=== PATIENT | female | born 1965 | race Caucasian/White ===

== ENCOUNTER 2020-08-13 17:27 | Inpatient (IN) | payer OTHER ==
[~2020-08-13] VITALS: Ht 172.7 cm; Wt 95.3 kg
[2020-08-13 18:38] LABS: BASOPHILS 0.1 % (0-2); EOSINOPHILS 0.1 % (0-7); HEMATOCRIT 48.4 % (36.0-48.0); HEMOGLOBIN 15.8 g/dL (12-16); LYMPHOCYTES 4.1 % (15-50); MCHC 32.6 g/dL (31.0-37.0); MCV 88.7 fL (80.0-100.0); MEAN PLATELET VOLUME 7.2 fL (7.4-10.4); MONOCYTES 3.3 % (2-11); NEUTROPHILS 92.4 % (40-80); PLATELET COUNT 419 10x3/uL (130-400); RBC 5.45 10x6/uL (4.00-5.40); RDW 13.3 % (11.5-14.5); WBC 15.1 10x3/uL (4.8-10.8)
[2020-08-13 19:00] LABS: APTT 24.7 SECONDS (22.8-39.4); INR 1.02 (0.85-1.17); PROTIME 12.4 SECONDS (11.6-15.0)
[2020-08-13] MEDS ORDERED: ZOLOFT25 MG PO (19:27)
[2020-08-13] MEDS ORDERED: OMEPRAZOLE40 MG PO (19:27)
[2020-08-13] MEDS ORDERED: BUPROPION HCL75 MG PO (19:27)
[2020-08-13] MEDS ORDERED: COZAAR25 MG PO (19:28)
[2020-08-13] MEDS ORDERED: ESTRACE 0.5 MG0.5 MG PO (19:28)
[2020-08-13 19:30] VITALS: BP 164/90
--- NOTE | 2020-08-13 19:31 | NUR ---
PT RESTING COMFORTABLY IN BED TALKING TO FAMILY MEMBER AT BEDSIDE. DENIES NEEDS. CALL LIGHT IN REACH.
[2020-08-13 20:09] LABS: ANION GAP 18.2 mmol/L (8-16); CALCIUM 8.8 mg/dL (8.5-10.1); CARBON DIOXIDE 26.3 mmol/L (21.0-32.0); CREATININE - SERUM 1.1 mg/dL (0.6-1.3); POTASSIUM - SERUM 4.5 mmol/L (3.5-5.1)
[2020-08-13 20:15] LABS: ALBUMIN 3.4 g/dL (3.4-5.0); PROTEIN - SERUM 7.4 g/dL (6.4-8.2)
[2020-08-13 20:30] VITALS: BP 167/91
--- NOTE | 2020-08-13 20:30 | NUR ---
PT IV MEFOXIN FINISHED
[2020-08-13 21:30] VITALS: BP 153/94
--- NOTE | 2020-08-13 21:43 | NUR ---
PT GIVEN ICE WATER TO DRINK. DENIES FURTHER NEEDS. CALL LIGHT IN REACH.
[2020-08-13 22:30] VITALS: BP 147/98
--- NOTE | 2020-08-13 23:15 | NUR ---
PT BROUGHT TO FLOOR AOX4. AMBULATED TO BED FROM WHEELCHAIR WITHOUT DIFFICULTY. PT ORIENTED TO ROOM AND UNIT. STATES NO PAIN OR NAUSEA AT THIS TIME. STATES ONLY PAIN TO RIGHT SIDE EPIGASTRIC AREA WHEN SHE MOVES. IV RIGHT AC INFUSING NS @ 75. REMINDED PT SHE IS NPO AFTER MN. VERBALIZED UNDERSTANDING. CL IN REACH
[2020-08-13 23:34] VITALS: BP 133/93; BMI 32.0
--- NOTE | 2020-08-14 03:30 | NUR ---
IV RIGHT AC ALARMING OCCLUDED AND LEAKING. REMOVED WITH CATH INTACT. RESITED IV TO LEFT WRIST
[2020-08-14 04:26] VITALS: BP 153/86
[2020-08-14 06:32] LABS: BASOPHILS 0.5 % (0-2); EOSINOPHILS 0 % (0-7); HEMOGLOBIN 14.6 g/dL (12-16); LYMPHOCYTES 7.6 % (15-50); MCH 28.9 pg (26.0-34.0); MCHC 33.1 g/dL (31.0-37.0); MCV 87.2 fL (80.0-100.0); MEAN PLATELET VOLUME 7.3 fL (7.4-10.4); MONOCYTES 5.8 % (2-11); NEUTROPHILS 86.1 % (40-80); PLATELET COUNT 420 10x3/uL (130-400); RBC 5.04 10x6/uL (4.00-5.40); RDW 13.2 % (11.5-14.5)
[2020-08-14 07:04] LABS: BILIRUBIN - TOTAL 0.87 mg/dL (0.2-1.3); CALCIUM 7.9 mg/dL (8.5-10.1); CARBON DIOXIDE 24.9 mmol/L (21.0-32.0); CREATININE - SERUM 0.9 mg/dL (0.6-1.3); PHOSPHOROUS 2.9 mg/dL (2.5-4.9); PROTEIN - SERUM 6.6 g/dL (6.4-8.2); THYROID STIMULATING HORMONE 0.96 uIU/mL (0.36-3.74)
--- NOTE | 2020-08-14 07:33 | NUR ---
CALLED MRI ABOUT DOING MRCP FIRST THING THIS MORNING PER DR CASPER REQUEST. NO ANSWER. RADIOLOGY STATES CALL BACK AGAIN AROUND OR A LITTLE BEFORE 0800.
[2020-08-14 07:36] LABS: ANION GAP 11.6 mmol/L (8-16); POTASSIUM - SERUM 3.5 mmol/L (3.5-5.1)
--- NOTE | 2020-08-14 08:04 | NUR ---
ALERT AND ORIENTED. ASSESSMENT COMPLETE. DENIES NEEDS. BED LOW. CALL SONG AND PERSONAL ITEMS IN REACH. SPOKE WITH MRI TO GET PATIENT IN FIRST THING THIS MORNING PER VOSHABBIR REQUEST. STATES JUST GETTING HERE BUT WILL GET HER FIRST. PATIENT MADE AWARE AND DENIES FURTHER QUESTIONS.
[2020-08-14 13:10] VITALS: BP 131/84
--- NOTE | 2020-08-14 14:08 | NUR ---
SPOKE WITH TREVON ABOUT POSSIBLE LAP EVARISTO WITH DR WARE PER DR CASPER ON UNIT. STATES DR WARE IS OUT BUT WILL LET DR CAMPO KNOW AND CALL BACK. STATES SURGERY WILL BE TOMORROW IF SURGERY HAPPENING AND OK FOR PATIENT TO EAT IF OK WITH MEDICAL. SPOKE WITH MARYSOL AWLLER AT DESK WITH DR CASPER ABOUT PATIENT. STATES OK FOR PATIENT TO HAVE CLEAR LIQUIDS AND NPO AFTER MN.
[2020-08-14 15:03] VITALS: BMI 31.9
[2020-08-14 15:45] VITALS: Ht 172.7 cm; Wt 95.3 kg
[2020-08-14 16:57] VITALS: BP 138/84
[2020-08-14 20:00] VITALS: BP 129/79
--- NOTE | 2020-08-14 20:00 | NUR ---
PT SITTING UP IN BED WITHOUT DISTRESS, AOX4. TALKING ON PHONE WITH FAMILY. DENIES PAIN, NAUSEA OR NEEDS AT THIS TIME. CL IN REACH
[2020-08-15 04:00] VITALS: BP 150/82
[2020-08-15 07:05] LABS: HEMATOCRIT 39.8 % (36.0-48.0); HEMOGLOBIN 13.2 g/dL (12-16); MCH 29.5 pg (26.0-34.0); MCHC 33.2 g/dL (31.0-37.0); MCV 88.9 fL (80.0-100.0); MEAN PLATELET VOLUME 7.8 fL (7.4-10.4); PLATELET COUNT 323 10x3/uL (130-400); RBC 4.48 10x6/uL (4.00-5.40); RDW 13.4 % (11.5-14.5); WBC 20.4 10x3/uL (4.8-10.8)
[2020-08-15 07:40] LABS: ALBUMIN 2.6 g/dL (3.4-5.0); ANION GAP 11.2 mmol/L (8-16); BILIRUBIN - TOTAL 0.79 mg/dL (0.2-1.3); CALCIUM 7.1 mg/dL (8.5-10.1); CARBON DIOXIDE 26.2 mmol/L (21.0-32.0); MAGNESIUM - SERUM 2.1 mg/dL (1.8-2.4); POTASSIUM - SERUM 3.4 mmol/L (3.5-5.1); PROTEIN - SERUM 6.3 g/dL (6.4-8.2)
[2020-08-15 07:56] LABS: PHOSPHOROUS 1.7 mg/dL (2.5-4.9)
[2020-08-15 08:47] LABS: LYMPHOCYTES 16 % (15-50); MONOCYTES 2 % (2-11); NEUTROPHILS 82 % (40-80); PLATELET ESTIMATE NORMAL
--- NOTE | 2020-08-15 09:37 | NUR ---
SHARAD CALLED FOR PREOP, DONE AT THIS TIME. RESTING COMFORTABLY. DENIES NEEDS. BED IN LOWEST POSITION, BED RAILS X2, CALL LIGHT WITHIN REACH. WILL CONTINUE POC. ASSESSMENT PERFORMED AT THIS TIME.
[2020-08-15 09:51] VITALS: BP 133/76
--- NOTE | 2020-08-15 10:07 | NUR ---
PATIENT OUT OF ROOM TO SURGERY
[2020-08-15 14:54] VITALS: BP 137/77
--- NOTE | 2020-08-15 15:12 | NUR ---
BACK TO ROOM, VITAL SIGNS STABLE. O2 SITTING AT 94-95% ON 4L O2 AT THIS TIME.
--- NOTE | 2020-08-15 16:58 | NUR ---
RESTING COMFORTABLY IN BED. MORE AWAKE NOW. VISITOR AT BEDSIDE. DENIES ANY NEEDS. WILL CONTINUE POC.
[2020-08-15 17:03] VITALS: BP 114/64
--- NOTE | 2020-08-15 18:20 | NUR ---
HUNG IV ABX, TOLERATING WELL. RESTING COMFORTABLY. DENIES ANY NEEDS AT THIS TIME. EATING ICE CHIPS. WILL CONTINUE POC.
--- NOTE | 2020-08-15 20:16 | NUR ---
PATINET K+ IS 3.4 REPLETE PER PROTOCOL, IV K+ X4 BAGS
[2020-08-15 20:45] VITALS: BP 127/74
--- NOTE | 2020-08-16 03:36 | NUR ---
I have reviewed this patient and I concur with the Shift Assessment completed by the Licensed Practical Nurse today this shift.
--- NOTE | 2020-08-16 03:56 | NUR ---
I have reviewed this patient and I concur with the Shift Assessment completed by the Licensed Practical Nurse today this shift.
[2020-08-16 06:35] LABS: BASOPHILS 0 % (0-2); EOSINOPHILS 0.2 % (0-7); HEMATOCRIT 35.7 % (36.0-48.0); HEMOGLOBIN 11.7 g/dL (12-16); LYMPHOCYTES 6.6 % (15-50); MCHC 32.8 g/dL (31.0-37.0); MCV 88.3 fL (80.0-100.0); MEAN PLATELET VOLUME 7.5 fL (7.4-10.4); MONOCYTES 6.2 % (2-11); PLATELET COUNT 274 10x3/uL (130-400); RBC 4.04 10x6/uL (4.00-5.40); RDW 13.2 % (11.5-14.5); WBC 17.6 10x3/uL (4.8-10.8)
[2020-08-16 07:18] LABS: ALBUMIN 2.2 g/dL (3.4-5.0); ANION GAP 12.2 mmol/L (8-16); BILIRUBIN - TOTAL 0.4 mg/dL (0.2-1.3); CARBON DIOXIDE 24.7 mmol/L (21.0-32.0); CREATININE - SERUM 0.9 mg/dL (0.6-1.3); MAGNESIUM - SERUM 2.5 mg/dL (1.8-2.4); POTASSIUM - SERUM 3.9 mmol/L (3.5-5.1); PROTEIN - SERUM 6.1 g/dL (6.4-8.2)
[2020-08-16 08:00] LABS: CALCIUM 6.9 mg/dL (8.5-10.1); PHOSPHOROUS 2.2 mg/dL (2.5-4.9)
[2020-08-16 09:19] VITALS: BP 142/84
--- NOTE | 2020-08-16 10:39 | NUR ---
HUNG IV ABX, TOLERATING WELL. VISITOR AT BEDSIDE. DENIES ANY NEEDS AT THIS TIME. WILL CONTINUE POC.
[2020-08-16 12:51] VITALS: BP 162/72
[2020-08-16 16:13] VITALS: BP 140/81
--- NOTE | 2020-08-16 17:15 | NUR ---
ENTERED PTS ROOM TO FIND HER CRYING AFTER RCVING A CLEAR LIQUID TRAY AND STATES THAT WOULD ADVANCE HER DIET THIS EVENING, GOT HER CALMED DOWN AND CALLED WHO AGREED TO ADVANCE DIET TO FULL LIQUID NOW. PT STATES SHE HAS HAD NO N/V TODAY, WILL CONT TO MONITOR.
--- NOTE | 2020-08-16 19:00 | NUR ---
BEDSIDE REPORT RECEIVED AND CARE OF PT ASSUMED. PT LYING IN SUPINE POSITION WITH EYES CLOSED. RIGHT IJ PATENT WITH NS INFUSING AT 125 ML/HR. X4 LAP SITES WELL APPROXIMATED. WILL MONITOR FOR NEEDS.
[2020-08-16 20:00] VITALS: BP 141/79
--- NOTE | 2020-08-16 20:55 | NUR ---
HS MEDICATIONS GIVEN. WILL CONTINUE TO MONITOR FOR NEEDS.
--- NOTE | 2020-08-16 20:55 | NUR ---
HS MEDICATIONS GIVEN. PT DECLINES NEED FOR PAIN MED AT THIS TIME. WILL CONTINUE TO MONITOR FOR NEEDS.
--- NOTE | 2020-08-17 01:56 | NUR ---
GAVE DILAUDID 1 MG IVP FOR C/O ACHING PAIN IN BACK AT LEVEL 7/10. WILL MONITOR FOR EFFECTIVENESS.
[2020-08-17 04:00] VITALS: BP 128/82
[2020-08-17 06:03] LABS: BASOPHILS 0.1 % (0-2); EOSINOPHILS 1.4 % (0-7); HEMOGLOBIN 11.2 g/dL (12-16); IMMATURE GRANULOCYTES 0.6 % (0-5); LYMPHOCYTE ABS# 1.49 10x3/uL (1.18-3.74); LYMPHOCYTES 8.5 % (15-50); MCH 28.6 pg (26.0-34.0); MCV 89.5 fL (80.0-100.0); MEAN PLATELET VOLUME 9.4 fL (7.4-10.4); MONOCYTES 10.5 % (2-11); NEUTROPHIL ABS# 13.82 10x3/uL (1.56-6.13); NEUTROPHILS 78.9 % (40-80); PLATELET COUNT 295 10x3/uL (130-400); RBC 3.91 10x6/uL (4.00-5.40); RDW 13.6 % (11.5-14.5); WBC 17.5 10x3/uL (4.8-10.8)
[2020-08-17 06:20] LABS: ALBUMIN 2.1 g/dL (3.4-5.0); ALKALINE PHOSPHATASE 138 U/L (30-120); BILIRUBIN - TOTAL 0.49 mg/dL (0.2-1.3); CALC OSMOLALITY 274 mosm/kg (275-300); CARBON DIOXIDE 24.8 mmol/L (21.0-32.0); CHLORIDE - SERUM 105 mmol/L (98-107); GLUCOSE 91 mg/dL (74-106); MAGNESIUM - SERUM 2.5 mg/dL (1.8-2.4); PROTEIN - SERUM 5.2 g/dL (6.4-8.2); SODIUM 138 mmol/L (136-145); UREA NITROGEN 9 mg/dL (7-18)
[2020-08-17 08:04] LABS: ALT (SGPT) 74 U/L (10-68); AMYLASE - SERUM 126 U/L (25-115); CALCIUM 6.8 mg/dL (8.5-10.1); CREATININE - SERUM 0.6 mg/dL (0.6-1.3); LIPASE 435 U/L (73-393); PHOSPHOROUS 1.5 mg/dL (2.5-4.9); eGFR NON AFRICAN AMERICAN > 90 mL/min (90-120)
[2020-08-17 08:12] VITALS: BP 144/81
--- NOTE | 2020-08-17 08:52 | NUR ---
HUNG IV PHOSPHATE PER PROTOCOL TO REPLETE PHOSPHORUS. UPRIGHT IN BED EATING BREAKFAST. DENIES ANY NEEDS AT THIS TIME. BED IN LOWEST POSITION, BED RAILS X2, CALL LIGHT WITHIN REACH. WILL CONTINUE POC. ASSESSMENT PERFORMED.
--- NOTE | 2020-08-17 10:33 | NUR ---
HUNG IV ABX, TOLERATING WELL. RESTING COMFORTABLY. DENIES FURTHER NEEDS AT THIS TIME. WILL CONTINUE POC.
[2020-08-17 11:22] LABS: BILIRUBIN NEGATIVE (NEGATIVE); KETONE 1+ mg/dL (< 1+); NITRITE NEGATIVE (NEGATIVE); PH 6.5 (5.0-8.0); SQUAMOUS EPITHELIAL 10 HPF (0-4); UROBILINOGEN NORMAL mg/dL (< 2); WHITE CELLS - URINE 2 HPF (0-4)
[2020-08-17 12:43] VITALS: BP 163/85
--- NOTE | 2020-08-17 15:41 | NUR ---
I have reviewed this patient and I concur with the Shift Assessment completed by the Licensed Practical Nurse today this shift.
--- NOTE | 2020-08-17 15:50 | NUR ---
CHANGED DRESSING TO RIGHT IJ. TOLERATED WELL. RESTING COMFORTABLY. DENIES ANY NEEDS AT THIS TIME. WILL CONTINUE POC.
[2020-08-17 18:02] VITALS: BP 149/78
--- NOTE | 2020-08-17 18:23 | NUR ---
HUNG IV ABX, TOLERATING WELL. RESTING COMFORTABLY AND DENIES NEEDS. WILL CONTINUE POC.
--- NOTE | 2020-08-17 19:00 | NUR ---
BEDSIDE REPORT RECEIVED AND CARE OF PT ASSUMED. PT LYING IN LOW PETERSON'S POSITION WATCHING TV. C/O WASN'T HAPPY WITH DINNER...OFFERED SNACK TONIGHT IF SHE WANTS. IV TO RIGHT IJ PATENT WITH NS INFUSING AT 125 ML/HR. WILL MONITOR FOR NEEDS.
--- NOTE | 2020-08-17 20:09 | NUR ---
PAGED KAPIL HAMILTON APN PER PT REQUEST TO RESTART HOME MED: OMEPRAZOLE 40 MG QHS PO FOR C/O REFLUX. ORDER RECEIVED.
--- NOTE | 2020-08-17 21:07 | NUR ---
HS MEDICATIONS GIVEN TO INCLUDE PROTONIX PER NEW ORDER. WILL CONTINUE TO MONITOR FOR NEEDS.
--- NOTE | 2020-08-17 21:10 | NUR ---
GAVE X2 4 OZ APPLESAUCE FOR HS SNACK.
[2020-08-17 21:29] VITALS: BP 130/72
[2020-08-18 05:09] VITALS: BP 132/72
[2020-08-18 07:15] LABS: BASOPHILS 0.2 % (0-2); EOSINOPHILS 1.9 % (0-7); HEMATOCRIT 32.9 % (36.0-48.0); LYMPHOCYTES 6.5 % (15-50); MCH 29.3 pg (26.0-34.0); MCHC 33.3 g/dL (31.0-37.0); MEAN PLATELET VOLUME 7.4 fL (7.4-10.4); MONOCYTES 8.9 % (2-11); NEUTROPHILS 82.5 % (40-80); PLATELET COUNT 323 10x3/uL (130-400); RBC 3.74 10x6/uL (4.00-5.40); RDW 13.1 % (11.5-14.5); WBC 18.5 10x3/uL (4.8-10.8)
[2020-08-18 07:48] LABS: ALBUMIN 1.9 g/dL (3.4-5.0); ALKALINE PHOSPHATASE 123 U/L (30-120); AMYLASE - SERUM 112 U/L (25-115); BILIRUBIN - TOTAL 0.45 mg/dL (0.2-1.3); CALC OSMOLALITY 275 mosm/kg (275-300); CALCIUM 7.2 mg/dL (8.5-10.1); CARBON DIOXIDE 22.9 mmol/L (21.0-32.0); CHLORIDE - SERUM 106 mmol/L (98-107); GLUCOSE 129 mg/dL (74-106); MAGNESIUM - SERUM 2.4 mg/dL (1.8-2.4); PROTEIN - SERUM 5.8 g/dL (6.4-8.2); SODIUM 138 mmol/L (136-145); UREA NITROGEN 7 mg/dL (7-18)
[2020-08-18 07:52] LABS: ALT (SGPT) 52 U/L (10-68); CREATININE - SERUM 0.8 mg/dL (0.6-1.3); LIPASE 576 U/L (73-393); POTASSIUM - SERUM 3.3 mmol/L (3.5-5.1); eGFR NON AFRICAN AMERICAN 78 mL/min (90-120)
[2020-08-18 07:53] LABS: PHOSPHOROUS 1.1 mg/dL (2.5-4.9)
--- NOTE | 2020-08-18 07:57 | NUR ---
PHARMACY TO MIX PHOSPHORUS 20MM. PHOSPHORUS 1.1 PER LABS.
[2020-08-18 08:23] VITALS: BP 158/81
--- NOTE | 2020-08-18 09:00 | NUR ---
ASSESSMENT PER FLOW SHEET. PATIENT IS WITHOUT DISTRESS.CALL LIGHT IN REACH
--- NOTE | 2020-08-18 09:53 | NUR ---
SPOKE WITH TG IN PHARMACY. LOIS TO BE MIXED SOON.
[2020-08-18 13:14] VITALS: BP 164/88
--- NOTE | 2020-08-18 14:10 | NUR ---
Nutrition follow-up: Pts diet advanced to regular low-fat as tolerated PO intake continues to be poor; pt unhappy with diet order Labs reviewed Wt: 209# POD3 of kenneth Will continue to provdie food choices and honor food preferences within diet restrictions. Will offer nutrition supplements RDN will follow-up on pts progress toward nutrition goals in 2-3 days.
[2020-08-18 17:04] VITALS: BP 166/85
[2020-08-18 20:00] VITALS: BP 154/88
--- NOTE | 2020-08-19 02:01 | NUR ---
I have reviewed this patient and I concur with the Shift Assessment completed by the Licensed Practical Nurse today this shift.
[2020-08-19 04:00] VITALS: BP 152/83
[2020-08-19 07:06] LABS: BASOPHILS 0.2 % (0-2); EOSINOPHILS 2.9 % (0-7); HEMATOCRIT 32.2 % (36.0-48.0); HEMOGLOBIN 10.5 g/dL (12-16); LYMPHOCYTES 7.7 % (15-50); MCH 28.6 pg (26.0-34.0); MCHC 32.6 g/dL (31.0-37.0); MCV 87.9 fL (80.0-100.0); MEAN PLATELET VOLUME 7.7 fL (7.4-10.4); MONOCYTES 9.5 % (2-11); NEUTROPHILS 79.7 % (40-80); PLATELET COUNT 358 10x3/uL (130-400); RBC 3.66 10x6/uL (4.00-5.40); RDW 13.4 % (11.5-14.5)
[2020-08-19 07:19] LABS: ALBUMIN 1.8 g/dL (3.4-5.0); ALKALINE PHOSPHATASE 119 U/L (30-120); ALT (SGPT) 49 U/L (10-68); AMYLASE - SERUM 121 U/L (25-115); BILIRUBIN - TOTAL 0.37 mg/dL (0.2-1.3); CALC OSMOLALITY 276 mosm/kg (275-300); CALCIUM 7.6 mg/dL (8.5-10.1); CHLORIDE - SERUM 107 mmol/L (98-107); CREATININE - SERUM 0.7 mg/dL (0.6-1.3); GLUCOSE 105 mg/dL (74-106); LIPASE 747 U/L (73-393); MAGNESIUM - SERUM 2.1 mg/dL (1.8-2.4); PHOSPHOROUS 2.7 mg/dL (2.5-4.9); POTASSIUM - SERUM 3.3 mmol/L (3.5-5.1); PROTEIN - SERUM 5.7 g/dL (6.4-8.2); SODIUM 140 mmol/L (136-145); UREA NITROGEN 8 mg/dL (7-18); eGFR NON AFRICAN AMERICAN > 90 mL/min (90-120)
--- NOTE | 2020-08-19 09:00 | NUR ---
ASSESSSMMENT PER FLOW SHEET. PATIENT IS WITHOUT DIISTRESS.MONITOR FOR NEEDS. CALL LIGHT IN REACH
[2020-08-19 09:06] VITALS: BP 153/84
[2020-08-19 12:00] VITALS: BP 163/85
[2020-08-19 12:41] LABS: CHOL - HDL RATIO 5.9 ratio (2.3-4.1); LDL-HDL RATIO 4.2 ratio (1.5-3.5)
--- NOTE | 2020-08-19 13:53 | MORECARE ---
CASE MANAGEMENT DISCHARGE SUMMARY PATIENT: BAKARI DIAZ UNIT: [id number] ADM DATE: 08/13/20 AGE: 54 : 61 SEX: F ROOM/BED: D.2218 AUTHOR: SYDNEY,DOC PHYSICIAN: REFERRING PHYSICIAN: PATRICIO ROWELL MD DATE OF SERVICE: 08/19/20 Case Management Discharge Planning Summary COMMENTS ENTERED DATE: 08/19/20 13:39 CT COMMENT TYPE: Discharge Planning REVIEWER: Negrita Giles CM met with patient to complete initial dc planning assessment. CM educated patient on the CM role and verbal consent given by patient to complete assessment. Patient lives at home where she states she is independent with her care. At discharge patient plans to return home and feels this is a safe discharge. CM discussed availability of home health, rehab services, and medical equipment. 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 She is a patient of Dr Clark and uses the [facility] in [place] .Patient denied known discharge needs at this time. CM will continue to follow and will assist as needed with dc plans/needs. DCP REVIEW SUMMARY ANTICIPATED D/C DATE: EXPECTED LOS : CASE STATUS: DCP Initiated INITIAL REVIEW: 08/13/2020 INITIAL REVIEWER: Negrita Giles FINAL DISCHARGE DISPOSITION: 01 : Home or Self Care (Routine Discharge) FINAL REVIEWER: FINAL REVIEW DATE: DCP [facility] Questions & Answers QUESTION: ANSWER : PATIENT: BAKARI DIAZ ENCOUNTER: [id number] MEDICAL RECORD#: [id number] ADMISSION DATE: 08/13/2020 DISCHARGE DATE: ATTENDING MD: PATRICIO HARE : AGE: 54 MARITAL STATUS: S DC PLAN ID: [id number] FACILITY: [facility] PRINTED ON: 08/19/20 13:52 CT All edits/amendments must be made on the electronic document DICTATION DATE: 08/19/20 135 MARBLE CARVER: MATILDE 08/19/20 135 RPT#: [id number] DC DATE: STATUS: ADM IN [facility] [address] [place] [address] END OF REPORT
--- NOTE | 2020-08-19 14:33 | NUR ---
PATIENT ABLE TO GET UP TO BEDSIDE AND STAND BY HERSELF, WALKED 250 FEET WITH CGA. PATIENT WAS SHORT OF BREATH, O2 SAT AT 85, BUT FOREST UP TO 92 AFTER SITTING DOWN.
[2020-08-19 16:54] VITALS: BP 159/89
--- NOTE | 2020-08-19 19:45 | NUR ---
RECEIVED BEDSIDE REPORT. PT LAYING IN BED A&O X4. CVL TO RIGHT IJ, PATENT AND INFUSING, NO REDNESS OR SWELLING, BIOPATCH IN PLACE, DRSG C/D/I, SWAB CAPS IN PLACE. ABD DISTENDED, X5 LAP SITES. PT ABLE TO AMBULATE AD EMILIANO. EDUCATED ON CL AND NEEDS, VERBALIZED UNDERSTANDING. BED LOW, CL IN REACH.
--- NOTE | 2020-08-19 21:31 | NUR ---
OT NOTE: PT COMPLETED SUPINE TO SIT WITH CGA. PT COMPLETED ADL MOB WITH CGA-MIN A. PT IS EASILY SOB WITH DAILY ACTIVITIES. PT DONNED GOWN WITH MIN A. PT REQUIRED TOTAL A RAFA SOCKS. [phone] THANK YOU,MARY SANDY
--- NOTE | 2020-08-19 21:41 | NUR ---
OT NOTE: PT COMPLETED SUPINE TO SIT WITH SPV. PT COMPLETED ADL MOB WITH SBA. PT COMPLETED RAFA GOWN WITH SETUP. PT REQUIRED TOTAL A FOR RAFA SOCKS. [phone] THANK YOU,MARY SANDY
[2020-08-20] VITALS (7 sets, daily range): BP systolic 141–164; BP diastolic 75–86
[2020-08-20 06:30] LABS: BASOPHILS 0.4 % (0-2); EOSINOPHILS 3.4 % (0-7); HEMOGLOBIN 10.8 g/dL (12-16); LYMPHOCYTES 8.9 % (15-50); MCH 29.4 pg (26.0-34.0); MCHC 33.6 g/dL (31.0-37.0); MCV 87.5 fL (80.0-100.0); MEAN PLATELET VOLUME 7.3 fL (7.4-10.4); MONOCYTES 10.7 % (2-11); NEUTROPHILS 76.6 % (40-80); PLATELET COUNT 414 10x3/uL (130-400); RBC 3.66 10x6/uL (4.00-5.40); RDW 13.1 % (11.5-14.5); WBC 14.8 10x3/uL (4.8-10.8)
[2020-08-20 07:13] LABS: ALBUMIN 1.8 g/dL (3.4-5.0); ALKALINE PHOSPHATASE 118 U/L (30-120); ALT (SGPT) 59 U/L (10-68); BILIRUBIN - TOTAL 0.38 mg/dL (0.2-1.3); CALC OSMOLALITY 277 mosm/kg (275-300); CARBON DIOXIDE 22.6 mmol/L (21.0-32.0); CHLORIDE - SERUM 106 mmol/L (98-107); CREATININE - SERUM 0.7 mg/dL (0.6-1.3); GLUCOSE 121 mg/dL (74-106); LIPASE 565 U/L (73-393); PROTEIN - SERUM 5.9 g/dL (6.4-8.2); SODIUM 140 mmol/L (136-145); UREA NITROGEN 6 mg/dL (7-18); eGFR NON AFRICAN AMERICAN > 90 mL/min (90-120)
[2020-08-20 07:27] LABS: POTASSIUM - SERUM 3.9 mmol/L (3.5-5.1)
--- NOTE | 2020-08-20 10:34 | NUR ---
PATIENT COMPLETELY INDEPENDENT, WALKED 250 FEET WITHOUT ASST DEVICE.
--- NOTE | 2020-08-20 12:22 | NUR ---
CVL DRESSING CHANGED. STERILE TECHNIQUE USED. PT TOLERATED WELL. WCTM.
--- NOTE | 2020-08-20 15:56 | NUR ---
OT NOTE: PT COMPLETED SUPINE TO SIT WITH INDEPENDENCE. PT COMPLETED ADL MOBILITY WITH INDEPENDENCE. PT COMPLETED RAFA GOWN WITH INDEPENDENCE. PT DONNED SOCKS WITH INDEPENCE. [phone] THANK YOU,MARY SANDY
--- NOTE | 2020-08-20 19:45 | NUR ---
RECIEVED BEDSIDE REPORT. LAYING SUPINE IN BED. ALERT AND ORIENTED X 4. NO COMPLAINTS OF PAIN OR DISCOMFORT AT THIS TIME. CVL PRESENT RIGHT IJ, PATENT, INFUSING FLUIDS PER ORDER, NO REDNESS OR SWELLING, DRESSING CLEAN, DRY, AND INTACT. BIOPATCH IN PLACE, ABD IS FLAT WITH LAP SITES X 5. AMBULATORY ADLIB STEADY GAIT. EDUCATION PROVIDED FOR CALL LIGHT AND NEEDS. VOICED UNDERSTANDING. CALL LIGHT IN REACH BED LOCKED IN LOW POSITION.
[2020-08-21 04:00] VITALS: BP 145/80
[2020-08-21 06:17] LABS: HEMATOCRIT 33.4 % (36.0-48.0); HEMOGLOBIN 10.8 g/dL (12-16); MCH 28.4 pg (26.0-34.0); MCHC 32.5 g/dL (31.0-37.0); MCV 87.4 fL (80.0-100.0); MEAN PLATELET VOLUME 7.2 fL (7.4-10.4); PLATELET COUNT 460 10x3/uL (130-400); RBC 3.82 10x6/uL (4.00-5.40); RDW 13.2 % (11.5-14.5); WBC 12.1 10x3/uL (4.8-10.8)
[2020-08-21 06:40] LABS: ALBUMIN 1.8 g/dL (3.4-5.0); ALKALINE PHOSPHATASE 112 U/L (30-120); ALT (SGPT) 57 U/L (10-68); BILIRUBIN - TOTAL 0.32 mg/dL (0.2-1.3); CALC OSMOLALITY 277 mosm/kg (275-300); CALCIUM 8.3 mg/dL (8.5-10.1); CARBON DIOXIDE 25.9 mmol/L (21.0-32.0); CHLORIDE - SERUM 106 mmol/L (98-107); CREATININE - SERUM 0.7 mg/dL (0.6-1.3); GLUCOSE 122 mg/dL (74-106); LIPASE 607 U/L (73-393); POTASSIUM - SERUM 3.8 mmol/L (3.5-5.1); PROTEIN - SERUM 5.9 g/dL (6.4-8.2); SODIUM 140 mmol/L (136-145); UREA NITROGEN 7 mg/dL (7-18); eGFR NON AFRICAN AMERICAN > 90 mL/min (90-120)
[2020-08-21 08:44] VITALS: BP 147/86
--- NOTE | 2020-08-21 08:50 | NUR ---
PT. RECEIVED RESTING IN BED, EATING CLEAR LIQUID DIET. NO COMPLAINTS. NO DISTRESS. IV NOTED TO R. JUGULAR INFUSING IV FLUIDS. REFUSES SCDS. LAP SITES CLEAN AND DRY TO ABDOMEN. CALL LIGHT WITHIN REACH. SR UPX2.
[2020-08-21 11:06] LABS: EOSINOPHILS 4 % (0-7); LYMPHOCYTES 6 % (15-50); MONOCYTES 8 % (2-11); NEUTROPHILS 79 % (40-80); PLATELET ESTIMATE INCREASED
--- NOTE | 2020-08-21 11:25 | NUR ---
PATIENT COMPLETELY INDEPENDENT WITH ALL MOBILITY, WALKED 250 FEET.
--- NOTE | 2020-08-21 13:04 | NUR ---
Nutrition reassessment: Pt s/p syeda jeanette 08/15/20 Diet advanced to regular as tolerated today Labs reviewed Ht: 5'8" Wt: 210# +BM Estimated needs, nutrition diagnosis, nutrition goals remain the same as initial assessment on 08/14/20. Nutrition intervention: Will provide food choices with selective menus and honor food preferences. Will offer nutritional supplements. RDN will follow-up on progress toward nutrition goals in 3-5 days.
--- NOTE | 2020-08-21 15:26 | NUR ---
OT NOTE: PT COMPLETED ADL MOB WITH INDEPENDENCE. PT COMPLETED TOILETING TASKS WITH INDEPENDENCE.PT COMPLETED HYGIENE AT SINL LEVEL WITH I. [phone] THANK YOU,MARY SANDY
[2020-08-21 16:37] VITALS: BP 164/75
--- NOTE | 2020-08-21 18:26 | NUR ---
IV REMOVED. PT DC INSTRUCTIONS READ AND PT VERBALIZED UNDERSTANDING. AWAITING RIDE HOME.
--- NOTE | 2020-08-21 18:36 | NUR ---
PT. LEFT FLOOR AMBULATORY IN STABLE CONDITION.
--- NOTE | 2020-08-22 13:17 | MORECARE ---
CASE MANAGEMENT DISCHARGE SUMMARY PATIENT: BAKARI DIAZ UNIT: [id number] ADM DATE: 08/13/20 AGE: 54 : 61 SEX: F ROOM/BED: D.2218 AUTHOR: SYDNEY,DOC PHYSICIAN: REFERRING PHYSICIAN: PATRICIO ROWELL MD DATE OF SERVICE: 08/22/20 Case Management Discharge Planning Summary COMMENTS ENTERED DATE: 08/19/20 13:39 CT COMMENT TYPE: Discharge Planning REVIEWER: Negrita Giles CM met with patient to complete initial dc planning assessment. CM educated patient on the CM role and verbal consent given by patient to complete assessment. Patient lives at home where she states she is independent with her care. At discharge patient plans to return home and feels this is a safe discharge. CM discussed availability of home health, rehab services, and medical equipment. 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 She is a patient of Dr Clark and uses the [facility] in [place] .Patient denied known discharge needs at this time. CM will continue to follow and will assist as needed with dc plans/needs. DCP REVIEW SUMMARY ANTICIPATED D/C DATE: EXPECTED LOS : CASE STATUS: DCP Initiated INITIAL REVIEW: 08/13/2020 INITIAL REVIEWER: Negrita Giles FINAL DISCHARGE DISPOSITION: 01 : Home or Self Care (Routine Discharge) FINAL REVIEWER: FINAL REVIEW DATE: DCP [facility] Questions & Answers QUESTION: ANSWER : PATIENT: BAKARI DIAZ ENCOUNTER: [id number] MEDICAL RECORD#: [id number] ADMISSION DATE: 08/13/2020 DISCHARGE DATE: 08/21/2020 ATTENDING MD: PATRICIO HARE : AGE: 54 MARITAL STATUS: S DC PLAN ID: [id number] FACILITY: [facility] PRINTED ON: 08/22/20 13:17 CT All edits/amendments must be made on the electronic document DICTATION DATE: 08/22/20 1317 MOLD PREPARER: MATILDE 08/22/20 1317 RPT#: [id number] DC DATE:08/21/20 STATUS: DIS IN [facility] [address] [place] [address] END OF REPORT
--- NOTE | 2020-08-25 14:48 | OP ---
PATIENT NAME: BAKARI DIAZ MEDICAL RECORD: [id number] :61 LOCATION:[id number] ADMISSION DATE:08/13/20 SURGEON: AYUSH CAMPO MD DATE OF OPERATION: 08/15/2020 PREOPERATIVE DIAGNOSES: 1. Gallstone pancreatitis. 2. Hypertension. 3. Gastroesophageal reflux disease. 4. Depression. POSTOPERATIVE DIAGNOSES: 1. Gallstone pancreatitis. 2. Hypertension. 3. Gastroesophageal reflux disease. 4. Depression. PROCEDURE: 1. Laparoscopic cholecystectomy with intraoperative cholangiogram. 2. Fluoroscopic interpretation. SURGEON: Ayush Campo MD DESCRIPTION OF PROCEDURE: The patient's abdomen was prepped and draped in sterile fashion. A cutdown was made on the superior aspect of the umbilicus, 0 Vicryls were placed on the fascia bilaterally and the fascia was incised with a 15-blade. I then bluntly entered the peritoneal cavity and placed a 12-mm Radha port. Under direct visualization, a 5-mm trocar was placed in the epigastrium and 2 more 5-mm trocars were placed in the right subcostal region. The gallbladder was grasped and elevated. There was some mild edematous changes to the gallbladder. The fatty adhesions were taken down carefully with blunt dissection. The cystic artery was dissected free and this was clipped proximally and distally and ligated in standard fashion. The cystic duct was then dissected free and did not appear to be grossly dilated. Clips were placed proximally and a small opening was made in the cystic duct. A Cook cholangiocatheter was brought through the abdominal wall and advanced through the cystic duct. We then performed an intraoperative cholangiogram. This showed normal filling of the intra and extrahepatic ducts and normal spillage of the contrast out into the duodenum. There appeared to be a duodenal diverticulum present in the second portion of the duodenum. There was backfilling into the pancreas, which did not appear to be obstructed or stenosed. At this point, the cholangiocatheter was removed. The cystic duct was clipped three times distally and ligated. The gallbladder was taken off the liver bed using electrocautery. We irrigated out the right upper quadrant and any bleeding from the liver bed was treated with electrocautery. I inspected the remainder of the abdominal cavity and did not see any evidence of any gross contamination. At this point, the ports and insufflation were then removed and the gallbladder was taken out through the umbilicus. The umbilical fascia was closed with interrupted 0 Vicryls times 3. The wounds were irrigated out with normal saline and infused with 10 mL of 0.25% Marcaine with epinephrine. The skin incisions were all closed with subcutaneous 5-0 Monocryl and dressed appropriately. COMPLICATIONS: None. OPERATIVE REPORT [id number] BAKARI DIAZ CONDITION: Stable. ANESTHESIA: General endotracheal and local. BLOOD LOSS: Minimal. TRANSINT:[id number] Voice Confirmation ID: [id number] DOCUMENT ID: [id number] AYUSH CAMPO MD at 1448 CC: [id number] DICTATION DATE: 08/15/20 1400 VIRTUAL CLASSROOM MANAGER: 08/15/20 1434 DIS IN 08/21/20 [id number] [place] [address]
== END 2020-08-21 18:37 | disposition home or self-care (01) | DRG 418 ==
LOC: D.ER 17:27 → D.MS 18:05 → D.EDHOLD 18:05 → D.MS 21:46
PROVIDERS: Emergency Medicine; Family Medicine; Surgery; ADMIT Emergency Medicine; ATTEND Emergency Medicine
PROC: BF131ZZ Fluoroscopy of Gallbladder and Bile Ducts using Low Osmolar Contrast (ICD-10-PCS; 2020-08-15)
PROC: 0FT44ZZ Resection of Gallbladder, Percutaneous Endoscopic Approach (ICD-10-PCS; principal; 2020-08-15 11:00)
DX: K85.10 Biliary acute pancreatitis without necrosis or infection (principal); K81.0 Acute cholecystitis; J90 Pleural effusion, not elsewhere classified; R74.01 Elevation of levels of liver transaminase levels; I10 Essential (primary) hypertension; K21.9 Gastro-esophageal reflux disease without esophagitis; F32.9 Major depressive disorder, single episode, unspecified